=== PATIENT | male | born 1970 | race Caucasian/White ===

== ENCOUNTER 2017-08-25 23:39 | Emergency (ER) | payer OTHER ==
[~2017-08-25] VITALS: Ht 175.3 cm; Wt 80.0 kg
[~2017-08-25 23:39] MED LIST: AMLO5TAB22 PO; FOLI1 PO; LITH300 PO; MVI PO; QUET200 PO; THIA100T PO
[2017-08-25 23:49] VITALS: BP 133/81; PULSE 92; RESP 16; TEMP 98.4; O2SAT 97
[2017-08-25] MEDS ORDERED: QUET-88 PO (23:49)
[2017-08-25] MEDS ORDERED: LITH600C PO (23:49)
[2017-08-26] MEDS ORDERED: KETOROLAC TROMETHAMINE 30 MG/ML (IVP) VIAL IV PUSH ONE (00:45)
[2017-08-26 00:53] LABS: AUTOMATED NEUTROPHIL # 4.4 TH/MM3 (1.8-7.7); BASOPHIL % 0.4 % (0.0-2.0); EOSINOPHIL # 0.1 TH/MM3 (0-0.4); EOSINOPHIL % 1.5 % (0.0-4.0); HEMATOCRIT 41.1 % (39.0-51.0); HEMOGLOBIN 14.3 GM/DL (13.0-17.0); LYMPH % 38.3 % (9.0-44.0); LYMPHOCYTE # 3.1 TH/MM3 (1.0-4.8); MEAN CELL VOLUME 94.3 FL (80.0-100.0); MEAN CORPUSCULAR HEMOGLOBIN 32.7 PG (27.0-34.0); MEAN CORPUSCULAR HGB CONC 34.7 % (32.0-36.0); MEAN PLATELET VOLUME 8.1 FL (7.0-11.0); MONOCYTE # 0.4 TH/MM3 (0-0.9); NEUT % 54.8 % (16.0-70.0); PLATELET COUNT 312 TH/MM3 (150-450); RED BLOOD COUNT 4.36 MIL/MM3 (4.50-5.90); RED CELL DISTRIBUTION WIDTH 13.4 % (11.6-17.2)
[2017-08-26 01:10] LABS: ALBUMIN 3.8 GM/DL (3.4-5.0); ALT (GPT) 28 U/L (12-78); AST (GOT) 30 U/L (15-37); BICARBONATE 27.5 MEQ/L (21.0-32.0); BLOOD UREA NITROGEN 5 MG/DL (7-18); CHLORIDE 106 MEQ/L (98-107); CREATININE 0.64 MG/DL (0.60-1.30); GLOMERULAR FILTRATION RATE 135 ML/MIN (>89); GLUCOSE,RANDOM 139 MG/DL (74-106); SODIUM (NA) 141 MEQ/L (136-145)
[2017-08-26 01:14] LABS: ALKALINE PHOSPHATASE 78 U/L (45-117); TOTAL BILIRUBIN ADULT 0.1 MG/DL (0.2-1.0); TOTAL PROTEIN 7.9 GM/DL (6.4-8.2); TROPONIN I LESS THAN 0.02 NG/ML (0.02-0.05)
--- NOTE | 2017-08-26 01:57 | PD ---
HPI Chief Complaint: Chest Pain Time Seen by Provider: 23:55 Travel History International Travel<30 days: No Contact w/Intl Traveler<30days: No Traveled to known affect area: No History of Present Illness HPI Patient called paramedics to an OP where he was complaining of chest pain but does not seem to have any significant component illness when they arrived he is somewhat combative and barking orders at them when they arrived to evaluate him. En route to the hospital he started to act as if he was passing out but it seemed that he was not really passing out and was just creating chaos in the back of the eminence regular in the ER he keeps asking for food testing for pain medication EKG is done normal sinus rhythm troponin is negative CAT scan of the head will be done he has an eschar on the forehead from a prior fall PFSH Past Medical History Bipolar Disorder: Yes Anxiety: Yes Depression: Yes Cancer: No Cardiovascular Problems: No Cerebrovascular Accident: Yes Diabetes: No Diminished Hearing: No Hypertension: Yes Immune Disorder: No Musculoskeletal: Yes (HX OF FRACTURE C 2005 WORE A HALO 7 MONTHS, FX SPINE /RIBS) Neurologic: No Psychiatric: Yes Reproductive: No Respiratory: No Seizures: Yes (alcohol with per pt about 5 years ago) Influenza Vaccination: No Past Surgical History Abdominal Surgery: Yes (EXP LAP) Social History Alcohol Use: Yes Tobacco Use: Yes (2 CIGS A DAY) Substance Use: No Allergies-Medications (Allergen,Severity, Reaction): Coded Allergies: No Known Allergies (Unverified Adverse Reaction, Unknown, 08/25/17) Per pt. Reported Meds & Prescriptions Reported Meds & Active Scripts Active Reported Quetiapine Fumarate ER (Quetiapine Fumarate) 200 Mg Tab 400 Mg PO HS [place] Carbonate 600 Mg Cap 600 Mg PO BID Review of Systems Except as stated in HPI: all other systems reviewed are Neg Cardiovascular: Positive: Chest Pain or Discomfort Physical Exam Narrative GENERAL: annoying instigative behavior on arrival , has dried blood on his forehead and chin SKIN: Warm and dry. abrasion 3 cm round to forehead HEAD: Atraumatic. Normocephalic. EYES: Pupils equal and round. No scleral icterus. No injection or drainage. ENT: No nasal bleeding or discharge. Mucous membranes pink and moist. chin has dried abrasion eschar 2 cm round no active bleed NECK: Trachea midline. No JVD. CARDIOVASCULAR: Regular rate and rhythm. RESPIRATORY: No accessory muscle use. Clear to auscultation. Breath sounds equal bilaterally. GASTROINTESTINAL: Abdomen soft, non-tender, nondistended. Hepatic and splenic margins not palpable. MUSCULOSKELETAL: Extremities without clubbing, cyanosis, or edema. No obvious deformities. NEUROLOGICAL: Awake and alert. No obvious cranial nerve deficits. Motor grossly within normal limits. . PSYCHIATRIC: slightly antagonist behavior and talk Data Data Last Documented VS Vital Signs Date Time Temp Pulse Resp B/P (MAP) Pulse Ox O2 Delivery O2 Flow Rate FiO2 08/26/17 05:09 68 16 123/77 (92) 98 Room Air 08/25/17 23:49 98.4 Orders Orders Complete Blood Count With Diff (08/25/17 23:55) Comprehensive Metabolic Panel (08/25/17 23:55) Ckmb (Isoenzyme) Profile (08/25/17 23:55) Troponin I (08/25/17 23:55) Lipase (08/25/17 23:55) Ketorolac Inj (Toradol Inj) (08/26/17 00:45) CKMB (08/26/17 00:00) CKMB% (08/26/17 00:00) Troponin I (08/26/17 04:45) Ct Brain W/O Iv Contrast(Rout) (08/26/17 ) Ed Discharge Order (08/26/17 06:28) Labs Laboratory Tests Test 08/26/17 00:00 08/26/17 05:00 White Blood Count 8.0 TH/MM3 Red Blood Count 4.36 MIL/MM3 Hemoglobin 14.3 GM/DL Hematocrit 41.1 % Mean Corpuscular Volume 94.3 FL Mean Corpuscular Hemoglobin 32.7 PG Mean Corpuscular Hemoglobin Concent 34.7 % Red Cell Distribution Width 13.4 % Platelet Count 312 TH/MM3 Mean Platelet Volume 8.1 FL Neutrophils (%) (Auto) 54.8 % Lymphocytes (%) (Auto) 38.3 % Monocytes (%) (Auto) 5.0 % Eosinophils (%) (Auto) 1.5 % Basophils (%) (Auto) 0.4 % Neutrophils # (Auto) 4.4 TH/MM3 Lymphocytes # (Auto) 3.1 TH/MM3 Monocytes # (Auto) 0.4 TH/MM3 Eosinophils # (Auto) 0.1 TH/MM3 Basophils # (Auto) 0.0 TH/MM3 CBC Comment DIFF FINAL Differential Comment Blood Urea Nitrogen 5 MG/DL Creatinine 0.64 MG/DL Random Glucose 139 MG/DL Total Protein 7.9 GM/DL Albumin 3.8 GM/DL Calcium Level 8.0 MG/DL Alkaline Phosphatase 78 U/L Aspartate Amino Transf (AST/SGOT) 30 U/L Alanine Aminotransferase (ALT/SGPT) 28 U/L Total Bilirubin 0.1 MG/DL Sodium Level 141 MEQ/L Potassium Level 3.4 MEQ/L Chloride Level 106 MEQ/L Carbon Dioxide Level 27.5 MEQ/L Anion Gap 8 MEQ/L Estimat Glomerular Filtration Rate 135 ML/MIN Total Creatine Kinase 280 U/L Creatine Kinase MB 2.6 NG/ML Troponin I LESS THAN 0.02 NG/ML LESS THAN 0.02 NG/ML Lipase 260 U/L MDM Medical Decision Making Medical Screen Exam Complete: Yes Emergency Medical Condition: Yes Differential Diagnosis chest pain Ischemic vs costochondritis, vs PNA vs malingering. Narrative Course trop negative times 2 and ekg NSR and CT head no bleed from recent fall . safe for d/c follow up out patient Diagnosis Primary Impression: Chest pain of unknown etiology Patient Instructions: Chest Pain (ED), General Instructions Scripts Aspirin (Aspirin Children's) 81 Mg Chew 81 MG CHEW DAILY, #30 TAB 0 Refills Prov: Flo Greenfield MD 08/26/17 Disposition: 01 DISCHARGE HOME Condition: Good Flo Greenfield MD Aug 26, 2017 01:57
[2017-08-26 03:34] VITALS: BP 119/69; PULSE 71; RESP 16; O2SAT 98
[2017-08-26] MEDS ORDERED: CLIN300C5 PO (04:22)
[2017-08-26 05:09] VITALS: BP 123/77; PULSE 68; RESP 16; O2SAT 98
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
[2017-08-26] MEDS ORDERED: ASPI81CH7 CHEW (06:32)
--- NOTE | 2017-08-26 23:37 | EKG ---
Date Performed: 08/25/2017 Time Performed: 23:51:17 PTAGE: 47 years EKG: Sinus rhythm NON-SPECIFIC ST/T WAVE CHANGES PREVIOUS TRACING : 04/24/2012 23.02 Compared to prior tracing, rate has decreased DOCTOR: Ron Whitlock Interpretating Date/Time 08/26/2017 23:36:49
== END 2017-08-26 06:45 | disposition home or self-care (01) ==
LOC: NEPE 23:39
DX: R07.9 Chest pain, unspecified (principal); I10 Essential (primary) hypertension; Z72.0 Tobacco use
CPT/HCPCS: 70450; 80053; 82550; 82552; 83690; 84484; 85025; 93005; 96374; 99284; J1885

== ENCOUNTER 2017-08-27 21:18 | Emergency (ER) | payer SELFPAY ==
[~2017-08-27 21:18] MED LIST changes: -AMLO5TAB22 PO; +ASPI81CH7 CHEW; -FOLI1 PO; -LITH300 PO; +LITH600C PO; -MVI PO; +QUET-88 PO; -QUET200 PO; -THIA100T PO
[2017-08-27 21:32] VITALS: BP 148/80; PULSE 95; RESP 18; TEMP 98.7; O2SAT 94
[2017-08-27] MEDS ORDERED: SODIUM CHLORIDE 0.9% FLUSH 10 ML FLUSH IVF PRN (21:45)
--- NOTE | 2017-08-27 21:52 | PD ---
HPI Chief Complaint: Chest Pain Time Seen by Provider: 21:36 Travel History International Travel<30 days: No Contact w/Intl Traveler<30days: No Traveled to known affect area: No History of Present Illness HPI Patient is a 47-year-old male presenting to the emergency department for evaluation of chest pain. Patient states started 2 hours prior to arrival, the pain is midsternal, there is no radiation but he reports numbness in his left arm. He states that he suddenly became sore all over 2 hours ago as well. He denies any nausea, vomiting, shortness of breath, headache, abdominal pain. He endorses drinking 6 beers this afternoon. Patient reports a history of bipolar disorder and is off of his medications for the last 2 days. Patient states she has not had lithium or Seroquel. Patient states the pain is a 4 out of 10 and is aching. Symptom onset was gradual, there are no alleviating factors. Pain is exacerbated to touch and movement. PFSH Past Medical History Bipolar Disorder: Yes Anxiety: Yes Depression: Yes Cerebrovascular Accident: Yes Hypertension: Yes Musculoskeletal: Yes (HX OF FRACTURE C 6-, 2005 WORE A HALO 7 MONTHS, FX SPINE /RIBS) Psychiatric: Yes Seizures: Yes (alcohol with per pt about 5 years ago) Past Surgical History Abdominal Surgery: Yes (EXP LAP) Social History Alcohol Use: Yes Tobacco Use: Yes (2 CIGS A DAY) Substance Use: No Allergies-Medications (Allergen,Severity, Reaction): Coded Allergies: No Known Allergies (Unverified Adverse Reaction, Unknown, 08/25/17) Per pt. Reported Meds & Prescriptions Reported Meds & Active Scripts Active Aspirin Children's (Aspirin) 81 Mg Chew 81 Mg CHEW DAILY Reported Quetiapine Fumarate ER (Quetiapine Fumarate) 200 Mg Tab 400 Mg PO HS [place] Carbonate 600 Mg Cap 600 Mg PO BID Review of Systems ROS Limitations: Intoxication Except as stated in HPI: all other systems reviewed are Neg General / Constitutional: No: Fever Eyes: No: Blurred Vision HENT: No: Headaches Cardiovascular: Positive: Chest Pain or Discomfort Respiratory: No: Shortness of Breath Gastrointestinal: No: Nausea, Abdominal Pain Musculoskeletal: Positive: Myalgias Physical Exam Narrative GENERAL: Well developed, well-nourished, alert male. Resting comfortably in no acute distress. SKIN: Warm and dry. HEAD: Atraumatic. Normocephalic. EYES: Pupils equal and round. No scleral icterus. No injection or drainage. ENT: No nasal bleeding or discharge. Mucous membranes pink and moist. NECK: Trachea midline. No JVD. CARDIOVASCULAR: Regular rate and rhythm. RESPIRATORY: No accessory muscle use. Clear to auscultation. Breath sounds equal bilaterally. GASTROINTESTINAL: Abdomen soft, non-tender, nondistended. Hepatic and splenic margins not palpable. MUSCULOSKELETAL: Extremities without clubbing, cyanosis, or edema. No obvious deformities. NEUROLOGICAL: Awake and alert. No obvious cranial nerve deficits. Motor grossly within normal limits. Five out of 5 muscle strength in the arms and legs. Normal speech. PSYCHIATRIC: Appropriate mood and affect; insight and judgment normal. Data Data Last Documented VS Vital Signs Date Time Temp Pulse Resp B/P (MAP) Pulse Ox O2 Delivery O2 Flow Rate FiO2 08/27/17 23:04 82 18 120/58 (78) 98 Nasal Cannula 2.00 08/27/17 21:32 98.7 Orders Orders Electrocardiogram (08/27/17 21:38) Ckmb (Isoenzyme) Profile (08/27/17 21:38) Complete Blood Count With Diff (08/27/17 21:38) Comprehensive Metabolic Panel (08/27/17 21:38) Magnesium (Mg) (08/27/17 21:38) Prothrombin Time / Inr (Pt) (08/27/17 21:38) Act Partial Throm Time (Ptt) (08/27/17 21:38) Troponin I (08/27/17 21:38) Lipase (08/27/17 21:38) Chest, Single Ap (08/27/17 21:38) Ecg Monitoring (08/27/17 21:38) Bilateral Bp Monitoring (08/27/17 21:38) Iv Access Insert/Monitor (08/27/17 21:38) Oximetry (08/27/17 21:38) Oxygen Administration (08/27/17 21:38) Sodium Chloride 0.9% Flush (Ns Flush) (08/27/17 21:45) Alcohol (Ethanol) (08/27/17 21:38) Acetaminophen (Tylenol) (08/27/17 23:00) CKMB (08/27/17 21:50) CKMB% (08/27/17 21:50) Sodium Chlor 0.9% 1000 Ml Inj (Ns 1000 M (08/27/17 23:15) Potassium Chloride (Kcl) (08/27/17 23:15) Thiamine (Vit B1) (Vitamin B1) (08/27/17 23:15) Folic Acid (Folate) (08/27/17 23:15) Labs Laboratory Tests Test 08/27/17 21:50 White Blood Count 8.3 TH/MM3 Red Blood Count 4.11 MIL/MM3 Hemoglobin 13.4 GM/DL Hematocrit 38.2 % Mean Corpuscular Volume 93.1 FL Mean Corpuscular Hemoglobin 32.5 PG Mean Corpuscular Hemoglobin Concent 34.9 % Red Cell Distribution Width 13.6 % Platelet Count 259 TH/MM3 Mean Platelet Volume 7.6 FL Neutrophils (%) (Auto) 61.7 % Lymphocytes (%) (Auto) 31.2 % Monocytes (%) (Auto) 5.7 % Eosinophils (%) (Auto) 0.9 % Basophils (%) (Auto) 0.5 % Neutrophils # (Auto) 5.1 TH/MM3 Lymphocytes # (Auto) 2.6 TH/MM3 Monocytes # (Auto) 0.5 TH/MM3 Eosinophils # (Auto) 0.1 TH/MM3 Basophils # (Auto) 0.0 TH/MM3 CBC Comment DIFF FINAL Differential Comment Prothrombin Time 9.9 SEC Prothromb Time International Ratio 1.0 RATIO Activated Partial Thromboplast Time 28.0 SEC Blood Urea Nitrogen 7 MG/DL Creatinine 0.71 MG/DL Random Glucose 118 MG/DL Total Protein 7.4 GM/DL Albumin 3.6 GM/DL Calcium Level 8.7 MG/DL Magnesium Level 1.9 MG/DL Alkaline Phosphatase 81 U/L Aspartate Amino Transf (AST/SGOT) 29 U/L Alanine Aminotransferase (ALT/SGPT) 27 U/L Total Bilirubin 0.2 MG/DL Sodium Level 139 MEQ/L Potassium Level 3.3 MEQ/L Chloride Level 104 MEQ/L Carbon Dioxide Level 24.6 MEQ/L Anion Gap 10 MEQ/L Estimat Glomerular Filtration Rate 119 ML/MIN Total Creatine Kinase 209 U/L Creatine Kinase MB 1.5 NG/ML Troponin I LESS THAN 0.02 NG/ML Lipase 273 U/L Ethyl Alcohol Level 355 MG/DL MDM Medical Decision Making Medical Screen Exam Complete: Yes Emergency Medical Condition: Yes Medical Record Reviewed: Yes Interpretation(s) Vital Signs Date Time Temp Pulse Resp B/P (MAP) Pulse Ox O2 Delivery O2 Flow Rate FiO2 08/27/17 21:32 98.7 95 18 148/80 (102) 94 Differential Diagnosis ACS vs NSTEMI vs metabolic abdomen versus malingering versus other Narrative Course Patient is a 47-year-old male presenting to emergency room for evaluation of chest pain. Patient had similar complaint a few days ago, that workup was negative the patient was discharged. Patient's vital signs are stable, labs and imaging ordered and pending. Initial EKG shows sinus rhythm with a rate of 87. Chest x-ray shows no acute disease, labs reviewed, no acute findings identified other than a potassium level III.3. Oral replacement was ordered. Patient's blood alcohol level is 355. He was given 1L of IV fluids, folic acid , thiamine. Exam findings are reassuring couple with patient's negative workup a few days ago. Chest pain likely musculoskeletal or pleuritic in nature due to patient's complaint of aching all over. She was given acetaminophen for his pain, he is requesting food. Patient is stable for discharge, is encouraged to avoid excessive alcohol intake. Patient will be given information regarding [facility]. Patient will be kept in the emergency department till he can demonstrate safe ambulation and appears clinically sober. Diagnosis Primary Impression: Chest wall discomfort Additional Impressions: Acute alcoholic intoxication Qualified Codes: F10.929 - Alcohol use, unspecified with intoxication, unspecified Hypokalemia Referrals: [facility] 1 day Patient Instructions: Abuse of Alcohol (ED), Alcohol Intoxication (ED), Chest Wall Pain (GEN), General Instructions Additional Instructions: Follow-up at [facility] Avoid excessive intake of alcohol Drink more water Return to emergency department for any new or worsening symptoms Med/Other Pt SpecificInfo: No Change to Meds Disposition: 01 DISCHARGE HOME Condition: Stable Martha Anton Aug 27, 2017 21:52
--- NOTE | 2017-08-27 21:56 | RADRPT ---
EXAM DATE/TIME: 08/27/2017 21:42 [facility] COMPARISON: No previous studies available for comparison. INDICATIONS : Chest pain, left arm numbness MEDICAL HISTORY : Hypertension. stroke SURGICAL HISTORY : None. ENCOUNTER: Initial ACUITY: 2 days PAIN SCORE: 8/10 LOCATION: Bilateral chest FINDINGS: A single view of the chest demonstrates the lungs to be symmetrically aerated without evidence of mas s, infiltrate or effusion. The cardiomediastinal contours are unremarkable. Healed fracture postero lateral left 9th rib. CONCLUSION: The lungs are clear. Enrico Lane MD on August 27, 2017 at 21:53 Board Certified Radiologist. This report was verified electronically.
[2017-08-27 22:04] VITALS: BP 138/66; PULSE 89; RESP 18; O2SAT 96
[2017-08-27 22:20] LABS: AUTOMATED NEUTROPHIL # 5.1 TH/MM3 (1.8-7.7); BASOPHIL % 0.5 % (0.0-2.0); EOSINOPHIL # 0.1 TH/MM3 (0-0.4); EOSINOPHIL % 0.9 % (0.0-4.0); HEMATOCRIT 38.2 % (39.0-51.0); HEMOGLOBIN 13.4 GM/DL (13.0-17.0); LYMPH % 31.2 % (9.0-44.0); LYMPHOCYTE # 2.6 TH/MM3 (1.0-4.8); MEAN CELL VOLUME 93.1 FL (80.0-100.0); MEAN CORPUSCULAR HEMOGLOBIN 32.5 PG (27.0-34.0); MEAN CORPUSCULAR HGB CONC 34.9 % (32.0-36.0); MEAN PLATELET VOLUME 7.6 FL (7.0-11.0); MONO % 5.7 % (0.0-8.0); MONOCYTE # 0.5 TH/MM3 (0-0.9); NEUT % 61.7 % (16.0-70.0); PLATELET COUNT 259 TH/MM3 (150-450); RED BLOOD COUNT 4.11 MIL/MM3 (4.50-5.90); RED CELL DISTRIBUTION WIDTH 13.6 % (11.6-17.2); WHITE BLOOD COUNT 8.3 TH/MM3 (4.0-11.0)
[2017-08-27 22:30] LABS: PROTHROMBIN TIME - PATIENT 9.9 SEC (9.8-11.6)
[2017-08-27 22:38] LABS: ALBUMIN 3.6 GM/DL (3.4-5.0); AST (GOT) 29 U/L (15-37); BICARBONATE 24.6 MEQ/L (21.0-32.0); BLOOD UREA NITROGEN 7 MG/DL (7-18); CALCIUM 8.7 MG/DL (8.5-10.1); CHLORIDE 104 MEQ/L (98-107); CREATININE 0.71 MG/DL (0.60-1.30); GLOMERULAR FILTRATION RATE 119 ML/MIN (>89); GLUCOSE,RANDOM 118 MG/DL (74-106); MAGNESIUM 1.9 MG/DL (1.5-2.5); SODIUM (NA) 139 MEQ/L (136-145)
[2017-08-27 22:39] LABS: ALT (GPT) 27 U/L (12-78)
[2017-08-27 22:45] LABS: TOTAL PROTEIN 7.4 GM/DL (6.4-8.2)
[2017-08-27 22:46] LABS: ALKALINE PHOSPHATASE 81 U/L (45-117); TOTAL BILIRUBIN ADULT 0.2 MG/DL (0.2-1.0); TROPONIN I LESS THAN 0.02 NG/ML (0.02-0.05)
[2017-08-27] MEDS ORDERED: ACETAMINOPHEN 325 MG TAB PO ONE (23:00)
[2017-08-27 23:04] VITALS: BP 120/58; PULSE 82; RESP 18; O2SAT 98
[2017-08-27] MEDS ORDERED: SODIUM CHLOR 0.9% 1000 ML INJ 1,000 ML IV ONE (23:15)
[2017-08-27] MEDS ORDERED: POTASSIUM CHLORIDE 10 MEQ CONTROLLED RELEASE TAB PO ONE (23:15)
[2017-08-27] MEDS ORDERED: FOLIC ACID 1 MG TAB PO ONE (23:15)
[2017-08-27] MEDS ORDERED: THIAMINE HCL 100 MG TAB PO ONE (23:15)
[2017-08-28 06:25] VITALS: BP 135/77
--- NOTE | 2017-08-28 11:08 | EKG ---
Date Performed: 08/27/2017 Time Performed: 22:08:27 PTAGE: 47 years EKG: Sinus rhythm NONSPECIFIC T-WAVE ABNORMALITY BORDERLINE ECG Since the prior tracing, there has been no significant change PREVIOUS TRACING : 08/25/2017 23.51 DOCTOR: Efren Boateng Interpretating Date/Time 08/28/2017 11:03:40
== END 2017-08-28 06:38 | disposition home or self-care (01) ==
LOC: NEPD 21:18 → NEDAMB 08-28 06:38
DX: R07.89 Other chest pain (principal); F10.129 Alcohol abuse with intoxication, unspecified; E87.6 Hypokalemia; R94.31 Abnormal electrocardiogram [ECG] [EKG]; F31.9 Bipolar disorder, unspecified; F41.9 Anxiety disorder, unspecified; I10 Essential (primary) hypertension; R56.9 Unspecified convulsions; Z86.73 Personal history of transient ischemic attack (TIA), and cerebral infarction without residual deficits
CPT/HCPCS: 71045; 80053; 80307; 82550; 82552; 83690; 83735; 84484; 85025; 85610; 85730; 93005; 96360; 99285; J7030

== ENCOUNTER 2017-08-28 18:09 | Emergency (ER) | payer SELFPAY ==
[~2017-08-28] VITALS: Ht 175.3 cm; Wt 71.0 kg
--- NOTE | 2017-08-28 19:43 | PD ---
HPI Chief Complaint: Chest Pain Time Seen by Provider: 18:20 Travel History International Travel<30 days: No Contact w/Intl Traveler<30days: No Traveled to known affect area: No History of Present Illness HPI 47-year-old male presents to emergency department for evaluation of persistent chest pain. Patient has been seen 2 times here this week for the same condition. He has had lab work and negative workups. States that it happened momentarily. Reports drinking of alcohol today. Moderate shortness of breath. No nausea vomiting. No other symptoms to report. PFSH Past Medical History Bipolar Disorder: Yes Anxiety: Yes Depression: Yes Cancer: No Cardiovascular Problems: No Cerebrovascular Accident: Yes Diabetes: No Diminished Hearing: No Hypertension: Yes Immune Disorder: No Musculoskeletal: Yes (HX OF FRACTURE C 2005 WORE A HALO 7 MONTHS, FX SPINE /RIBS) Neurologic: No Psychiatric: Yes Reproductive: No Respiratory: No Seizures: Yes (alcohol with per pt about 5 years ago) Past Surgical History Abdominal Surgery: Yes (EXP LAP) Social History Alcohol Use: Yes Tobacco Use: Yes (2 CIGS A DAY) Substance Use: Yes (ALCOHOL) Allergies-Medications (Allergen,Severity, Reaction): Coded Allergies: No Known Allergies (Unverified Adverse Reaction, Unknown, 08/25/17) Per pt. Reported Meds & Prescriptions Reported Meds & Active Scripts Active Aspirin Children's (Aspirin) 81 Mg Chew 81 Mg CHEW DAILY Reported Quetiapine Fumarate ER (Quetiapine Fumarate) 200 Mg Tab 400 Mg PO HS [place] Carbonate 600 Mg Cap 600 Mg PO BID Review of Systems Except as stated in HPI: all other systems reviewed are Neg Physical Exam Narrative Well-nourished male patient, with strong smell of alcohol on his breath. Ambulatory with suitcase in toe. He appears nontoxic. Abrasions to the face. Even respirations. Regular rate and rhythm. No obvious deformities. No edema. MDM Medical Decision Making Medical Screen Exam Complete: Yes Emergency Medical Condition: Yes Medical Record Reviewed: Yes Differential Diagnosis Chest wall pain versus intoxication versus pleuritic pain versus ACS Narrative Course 47-year-old male presents emergency department for evaluation of chest pain. This is the third time he has been here in the last week for this. He appears without distress. Upon initial examination, patient appears nontoxic. He is awaiting bed placement. Prior to being assigned a bed, patient chooses to leave. AMA: The risks of leaving against medical advice without further evaluation treatment were discussed with the patient. These risks include cardiac dysfunction, cardiac dysrhythmia, possible heart attack, possible stroke or . The patient indicated understanding of these risks and appeared to have the capacity to make this decision. Diagnosis Primary Impression: Chest pain Disposition: 07 AGAINST MEDICAL ADVICE Condition: Stable Kathryn Karimi Aug 28, 2017 19:43
== END 2017-08-28 22:43 | disposition left against medical advice (07) ==
LOC: NEDAMB 18:09
DX: R07.9 Chest pain, unspecified (principal); I10 Essential (primary) hypertension; F31.9 Bipolar disorder, unspecified; F17.210 Nicotine dependence, cigarettes, uncomplicated; Z53.21 Procedure and treatment not carried out due to patient leaving prior to being seen by health care provider; Z86.73 Personal history of transient ischemic attack (TIA), and cerebral infarction without residual deficits; Z79.899 Other long term (current) drug therapy
CPT/HCPCS: 99281